=== PATIENT | female | born 1955 | race Caucasian/White ===

== ENCOUNTER → 2018-04-27 12:06 | Outpatient (CLI) | payer OTHER, MEDICAID, SELFPAY ==
--- NOTE | 2018-04-27 | DI.MRI.S_ITS ---
PROCEDURE: MR HEAD/BRAIN WO/W CON INDICATIONS: SPELL OF ALTERED CONSCIOUSNESS TECHNIQUE: Noncontrast axial T1 spin echo, axial T2 fast spin echo, sagittal and axial FLAIR, coronal T2 fast spin echo, axial gradient echo, axial diffusion and ADC through the brain. After the administration of contrast, axial and coronal 3D VIBE or T1 spin echo with fat saturation through the brain. COMPARISON: None. FINDINGS: Image quality: Excellent. CSF Spaces: Basal cisterns are patent. No extra-axial fluid collections. Ventricles are normal in size and shape. Brain: No midline shift. No intracranial bleeds or masses. No abnormal intracranial enhancement. The brainstem appears normal. Diffusion-weighted images demonstrate no acute ischemic insults. No chronic ischemic insults. Normal intravascular flow voids are present. Skull and face: Calvarial marrow is normal in signal. Orbits appear normal. Sinuses: Sinuses and mastoids appear clear. IMPRESSION: Mild mucosal thickening right maxillary sinus, normal appearing ventricles and subarachnoid spaces. No evidence of underlying prior hemorrhage or inflammation involving the brain parenchyma. Source of altered mental status is not found. Dictated by: Brent Ryder M.D. on 04/27/2018 at 12:33 Approved by: Brent Ryder M.D. on 04/27/2018 at 12:38
== END ==
PROVIDERS: PCP Nurse Practitioner Gerontology; Visit Provider Psychiatry & Neurology Neurology
DX: R40.4 Transient alteration of awareness (principal)
CPT/HCPCS: 70553; A9579

== ENCOUNTER 2021-07-08 14:06 | Emergency (ER) | payer OTHER, MEDICAID, SELFPAY ==
[2021-07-08] VITALS (9 sets, daily range): BP systolic 109–144; BP diastolic 63–74; PULSE 66–83; RESP 7–38; TEMP 36.9; O2SAT 94–99; BMI 24.8
--- NOTE | 2021-07-08 14:13 | DI.RAD.S_ITS ---
PROCEDURE: XR CHEST 1V INDICATIONS: chest pain TECHNIQUE: One view of the chest was acquired. COMPARISON: None. FINDINGS: Surgical changes and devices: None. Lungs and pleura: Minor atelectatic change at the left lung base. Lungs are otherwise clear. No pleural effusions or pneumothorax. Mediastinum: Mediastinal contours appear normal. Heart size is normal. Bones and chest wall: No suspicious bony lesions. Overlying soft tissues appear unremarkable. IMPRESSION: 1. No acute cardiopulmonary disease. Dictated by: Amie Zapien M.D. on 07/08/2021 at 15:12 Approved by: Amie Zapien M.D. on 07/08/2021 at 15:12
--- NOTE | 2021-07-08 14:53 | PC.NURSE ---
Patient reports head injury from fall 2 weeks ago with laceration to back of head, did not have immediate LOC but reports lethargy and inability to stay awake longer than 2 minutes. Did not seek care for fall. C/o flopping of the body, nausea, confusion, difficulty ambulating.
[2021-07-08 14:57] LABS: Add Manual Diff / Slide Review NO; Basophils Absolute Auto 0 /uL (0-100); Basophils Percent Auto 0.8 % (0-2); Eosinophils Absolute Auto 100 /uL (0-450); Eosinophils Percent Auto 2.2 % (2-4); Hematocrit 42.6 % (36-46); Hemoglobin 14.5 g/dL (12.0-16.0); Lymphocytes Absolute Auto 1600 /uL (1100-4500); Lymphocytes Percent Auto 30.8 % (25-40); Mean Corpuscular HGB Conc 33.9 % (30-36); Mean Corpuscular Hemoglobin 30.8 PG (26-34); Mean Corpuscular Volume 90.8 fL (80-100); Monocytes Absolute Auto 600 /uL (0-900); Monocytes Percent Auto 11.2 % (3-14); Neutrophils Absolute Auto 2900 /uL (1500-7000); Platelet Count 225 X10^3/uL (150-400); Red Blood Cell Count 4.69 X10^6/uL (4.0-5.2); White Blood Cell Count 5.3 X10^3/uL (4.5-11.0)
--- NOTE | 2021-07-08 14:59 | DI.CT.S_ITS ---
PROCEDURE: CT HEAD/BRAIN WO CON INDICATIONS: fall, hit head 2 weeks ago. TECHNIQUE: Noncontrast 4.5 mm thick angled axial sections acquired from the foramen magnum to the vertex, with coronal and sagittal reformats. For radiation dose reduction, the following was used: automated exposure control, adjustment of mA and/or kV according to patient size. COMPARISON: [facility], , STROKE PROTOCOL, 02/10/2014, 7:14. [facility], MR, MR HEAD/BRAIN WO/W CON, 04/27/2018, 11:03. FINDINGS: Image quality: Excellent. CSF spaces: Basal cisterns are patent. No extra-axial fluid collections. The ventricles are symmetric in size and shape. Brain: No intracranial bleeds or masses. There is cerebral volume loss for age, with resultant ventricular and sulcal prominence. There are periventricular and deep white matter chronic small vessel ischemic changes. There is intracranial internal carotid artery atherosclerosis. Skull and face: Calvarium and visualized facial bones appear intact, without suspicious lesions. Sinuses: Visualized sinuses and mastoids are clear. IMPRESSION: 1. No acute intracranial abnormalities. Dictated by: Pascual Oliveira M.D. on 07/08/2021 at 15:36 Approved by: Pascual Oliveira M.D. on 07/08/2021 at 16:56
[2021-07-08 15:08] LABS: Alanine Aminotransferase 25 IU/L (<35); Albumin 4.5 g/dL (3.5-5.0); Albumin Globulin Ratio 1.6 (1.0-2.8); Alkaline Phosphatase 88 U/L (38-126); Aspartate Aminotransferase 28 IU/L (14-36); BUN Creatinine Ratio 20.3 (6-22); Bilirubin Total 0.5 mg/dL (0.2-1.3); Blood Urea Nitrogen 13 mg/dL (7-17); Calcium 9.7 mg/dL (8.4-10.2); Carbon Dioxide 28 mmol/L (22-32); Chloride 100 mmol/L (98-107); Creatine Kinase 40 U/L (30-135); Estimated Glomerular Filt Rate > 60.0 mL/min (>60); Globulin 2.9 g/dL (1.7-4.1); Glucose 166 mg/dL (80-110); HEMOLYSIS < 15 (0-50); Lipase 156 U/L (23-300); Potassium 3.8 mmol/L (3.4-5.1); Sodium 138 mmol/L (137-145); Total Protein 7.4 g/dL (6.3-8.2)
[2021-07-08 15:19] LABS: Troponin I < 0.012 ng/mL (0.01-0.034)
--- NOTE | 2021-07-08 15:54 | ED_ITS ---
HPI - Fall General Chief Complaint: Dizziness Stated Complaint: Fell, vertigo, hit head,not focusing, nausea Time Seen by Provider: 07/08/21 14:59 Source: patient Mode of arrival: Family Vehicle Limitations: no limitations History of Present Illness HPI Narrative: This is a 65-year-old female who comes with complaint of chronic vertigo which caused her to fall about 2 weeks ago. Patient states she fell striking the back of her head. She states there was a laceration but she allowed it to heal at home. She states that she did not have a complete loss of consciousness but she was confused. She states she basically went to bed for the next 5 days to recover. Patient states she would get up for couple hours each day but has felt continuing sense of fatigue that is quite strong since the episode, she has occasionally felt dizzy on top of her typical vertigo symptoms which are chronic in nature. She has had headaches which she describes as different at than her typical migraines. They sort of change location. She has had trouble focusing, she has had trouble or she just feels unwell when she tries to engage or have conversations or read or watch TV. She has had some nausea particularly with these types of activities but no vomiting. She actually finds food is helpful. She denies any syncope. No chest pain or shortness of breath. No numbness, tingling or weakness. Patient states she has had issues with vertigo typically is a seasonal issue and this is chronic and does not seem to be worsening. She does note that she has had a history of ?spells? that never had a formal diagnosis she saw a neurologist who told her it was all in her head. She states she saw 1 of our general surgeons who she showed diagnosis out of a book and they told her that seemed corrected she was treated with steroids but she does not know what the diagnosis was and can not describe it. She has had multiple MRIs in the past. She does have a primary care she follows with. She had history of breast cancer in 2013 she had lumpectomy and radiation but no chemotherapy. She has had bilateral oophorectomy for ?spots on her ovaries? and cholecystectomy. She uses a hormonal patch, migraine medications and CBD gummies every couple weeks which help with her spells. She gets nausea with codeine. No tobacco, alcohol or illicit other than CBD. 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 She does have a primary care that she follows with. Related Data Previous Rx's Medication Instructions Recorded hydromorphone 2 mg tablet 2 mg PO Q4HP PRN #20 tab 09/16/16 (Dilaudid) ondansetron 4 mg disintegrating 4 mg SUBLINGUAL Q4HP PRN #15 odt 09/16/16 tablet (Zofran ODT) oxycodone-acetaminophen 5 mg-325 1 - 2 tab PO Q6HP PRN #20 tab 09/20/16 mg tablet (Percocet) Allergies Allergy/AdvReac Type Severity Reaction Status Date / Time No Known Drug Allergies Allergy Verified 07/08/21 14:22 Review of Systems Review of Systems ROS Unobtainable: All systems reviewed & are unremarkable except as noted in HPI and below Patient History Social History Smoking Status: Never smoker Smoking Status: Never smoker alcohol intake frequency: holidays/special occasions only Substance Use Type: does not use Exam Narrative Exam Narrative: GEN: well nourished, well appearing female, alert and oriented x 3, patient appears to be in mild distress. HEENT: Atraumatic, pupils are equal round reactive to light, extraocular movements are intact, nares are clear, TMs are clear with no fluid, there is no conjunctival pallor. Throat is clear without any exudates, erythema, tonsillar enlargement or uvular deviation, no facial droop. HEART: Regular rate and rhythm without murmur, clicks, rubs. Pulses are equal in upper and lower extremities LUNGS:Lungs clear to auscultation, no wheezes, rales, crackles, chest moves symmetrically ABD:bowel sounds normal, soft, non-tender, no guarding, rebound, rigidity, no masses noted, no hepatosplenomegaly :No CVA tenderness MSCL: Non-tender, no muscle atrophy, muscles strength 5/5 upper and lower extremities, full range of motion NEURO:CN 2-12 intact, sensation normal, reflexes 2/4 upper and lower extremities. finger nose finger test normal, heel gallegos test normal, no dysarthria or aphasia. SKIN: No rash, erythema or other skin changes. Initial Vital Signs Initial Vital Signs: Vital Signs Temperature 98.5 F 10/28/21 14:15 Pulse Rate 78 07/08/21 14:15 Respiratory Rate 19 07/08/21 14:15 Blood Pressure 139/71 07/08/21 14:15 Pulse Oximetry 99 07/08/21 14:15 Course Orders Ordered: ED Orders 07/08/21 14:13 XR chest 1V Stat EKG-12 Lead Stat 07/08/21 14:47 Complete Blood Count AUTO DIFF Stat Comprehensive Metabolic Panel Stat Lipase Stat Troponin & CK Cardiac Panel Stat 07/08/21 14:59 CT head/brain wo con Stat 07/08/21 16:55 Urine Microscopic Stat Vital Signs Vital signs: Vital Signs - 8 hr 07/08/21 14:15 07/08/21 14:43 07/08/21 14:44 Temperature 98.5 F Pulse Rate 78 83 81 Respiratory Rate 19 17 16 Blood Pressure 139/71 134/72 Pulse Oximetry 99 99 98 07/08/21 15:00 07/08/21 15:01 07/08/21 15:30 Temperature Pulse Rate 69 67 70 Respiratory Rate 33 H 28 H 7 L Blood Pressure 122/72 114/63 Pulse Oximetry 96 96 95 07/08/21 16:00 07/08/21 16:30 07/08/21 17:00 Temperature Pulse Rate 67 66 72 Respiratory Rate 38 H 23 24 Blood Pressure 109/66 140/74 144/66 H Pulse Oximetry 94 96 97 MDM - Fall Lab Data Result diagrams: 07/08/21 14:47 07/08/21 14:47 Labs: Lab Results 07/08/21 07/08/21 07/08/21 Range/Units 14:47 14:47 16:55 WBC 5.3 (4.5-11.0) X10^3/uL RBC 4.69 (4.0-5.2) X10^6/uL Hgb 14.5 (12.0-16.0) g/dL Hct 42.6 (36-46) % MCV 90.8 (80-100) fL MCH 30.8 (26-34) PG MCHC 33.9 (30-36) % RDW 13.0 (11.6-14.8) % Plt Count 225 (150-400) X10^3/uL Neut % (Auto) 55.0 (50-75) % Lymph % (Auto) 30.8 (25-40) % [place] % (Auto) 11.2 (3-14) % Eos % (Auto) 2.2 (2-4) % Baso % (Auto) 0.8 (0-2) % Neut # (Auto) 2900 (8098-7952) /uL Lymph # (Auto) 1600 (3062-5334) /uL [place] # (Auto) 600 (0-900) /uL Eos # (Auto) 100 (0-450) /uL Baso # (Auto) 0 (0-100) /uL Sodium 138 (137-145) mmol/L Potassium 3.8 (3.4-5.1) mmol/L Chloride 100 (98-107) mmol/L Carbon Dioxide 28 (22-32) mmol/L BUN 13 (7-17) mg/dL Creatinine 0.64 (0.52-1.04) mg/dL Estimated GFR > 60.0 (>60) mL/min BUN/Creatinine Ratio 20.3 (6-22) Glucose 166 H (80-110) mg/dL Calcium 9.7 (8.4-10.2) mg/dL Total Bilirubin 0.5 (0.2-1.3) mg/dL AST 28 (14-36) IU/L ALT 25 (<35) IU/L Alkaline Phosphatase 88 (38-126) U/L Total Creatine Kinase 40 (30-135) U/L CK-MB (CK-2) TNP CK-MB (CK-2) Rel Index TNP Troponin I < 0.012 (0.01-0.034) ng/mL Total Protein 7.4 (6.3-8.2) g/dL Albumin 4.5 (3.5-5.0) g/dL Globulin 2.9 (1.7-4.1) g/dL Albumin/Globulin Ratio 1.6 (1.0-2.8) Lipase 156 (23-300) U/L Urine RBC 0-1/hpf (0-5/HPF) Urine WBC None seen (0-5/HPF) Ur Squamous Epith Cells 5-10 /hpf H (0-5/HPF) Urine Bacteria Moderate (10-30) H (None) Ur Culture Indicated? Cult not indicated Urine Dip Bedside Urine Glucose Negative Bedside Urine Bilirubin - Negative Bedside Urine Ketone +/- 5 Urine Specific [place] 1.025 Bedside Urine Occult Blood +/- Bedside Urine pH 6.0 Bedside Urine Protein - Negative Bedside Urine Urobilinogen - Negative Bedside Urine Nitrite - Negative Bedside Urine Leukocytes - Negative Esterase Imaging Data CT scan - head: Radiologist's Impression: Yoselyn Benito 65 F [address] [id number] Scan ReportSigned Patient: Yoselyn Benito JMR#: [id number]: 1955cct:[id number]/Sex: 65 / FDate of Service: 07/08/21Loc: EDAccession Number: [id number] Procedure: CT head/brain wo con Ordering Provider: Vania Almaguer D.O. PROCEDURE: CT HEAD/BRAIN WO CON INDICATIONS: fall, hit head 2 weeks ago. TECHNIQUE: Noncontrast 4.5 mm thick angled axial sections acquired from the foramen magnum to the vertex, with coronal and sagittal reformats. For radiation dose reduction, the following was used: automated exposure control, adjustment of mA and/or kV according to patient size. COMPARISON: [facility], , STROKE PROTOCOL, 02/10/2014, 7:14. [facility], MR HEAD/BRAIN WO/W CON, 04/27/2018, 11:03. FINDINGS: Image quality: Excellent. CSF spaces: Basal cisterns are patent. No extra-axial fluid collections. The ventricles are symmetric in size and shape. Brain: No intracranial bleeds or masses. There is cerebral volume loss for age, with resultant ventricular and sulcal prominence. There are periventricular and deep white matter chronic small vessel ischemic changes. There is intracranial internal carotid artery atherosclerosis. Skull and face: Calvarium and visualized facial bones appear intact, without suspicious lesions. Sinuses: Visualized sinuses and mastoids are clear. IMPRESSION: 1. No acute intracranial abnormalities. Dictated by: Pascual Oliveira M.D. on 07/08/2021 at 15:36 Approved by: Pascual Oliveira M.D. on 07/08/2021 at 16:56 Chest x-ray: Radiologist's Impression: [address] [id number] ReportSigned Patient: Yoselyn Benito [facility]#: [id number]: 8Acct:[id number]/Sex: 65 / FDate of Service: 07/08/21Loc: EDAccession Number: [id number] Procedure: XR chest 1V Ordering Provider: Vania Almaguer D.O. PROCEDURE: XR CHEST 1V INDICATIONS: chest pain TECHNIQUE: One view of the chest was acquired. COMPARISON: None. FINDINGS: Surgical changes and devices: None. Lungs and pleura: Minor atelectatic change at the left lung base. Lungs are o therwise clear. No pleural effusions or pneumothorax. Mediastinum: Mediastinal contours appear normal. Heart size is normal. Bones and chest wall: No suspicious bony lesions. Overlying soft tissues appear unremarkable. IMPRESSION: 1. No acute cardiopulmonary disease. Dictated by: Amie Zapien M.D. on 07/08/2021 at 15:12 Approved by: Amie Zapien M.D. on 07/08/2021 at 15:12 ECG Data Attestation: I personally reviewed and interpreted this ECG as follows: Prior ECG tracings: available for review Interpretation: Sinus rhythm premature atrial complexes. Nonspecific T-wave. Rate of 79 OR 150 QRS is 78 QTC 451. No acute ST changes appreciated. MDM Narrative Medical decision making narrative: 65-year-old female who has had chronic vertigo which caused her to fall about 2 weeks ago she states she hit her head she has described headaches, feeling confused and symptoms seem very consistent with concussion. She and I discussed at length her symptoms recent and new she has seen neurology in the past but that was almost a decade ago. Her vertigo has never been fully worked up and I recommended that this might be helpful to her. We discussed following with her primary care we even discussed neuropsychiatric testing for concussion which she seems reluctant to pursue but we discussed if she has persistent symptoms that are not improving she should at least to follow up and go ahead and call and set up an appointment so she can be seen in the next week. Return precautions discussed she defers any medications for symptoms. Discharge Plan Departure Patient Disposition: Home Clinical Impression: Concussion Instructions: DI for Concussion Activity Restrictions/Additional Instructions: Follow-up with your physician for recheck. Your symptoms today seem very consistent with a concussion from your fall and hitting your head. I would recommend following with ENT if you have persistent and recurrent vertigo type symptoms. Referral is included below. Please return for severe headaches, vision changes, new numbness, tingling or weakness, persistent vomiting, passing out, new vision changes, or other new or concerning symptoms Prescriptions: No Action hydromorphone [Dilaudid] 2 MG tablet 2 mg PO Q4HP PRNQty: 20 RF: 0 ondansetron [Zofran ODT] 4 MG tablet,disintegrating 4 mg Sublingual Q4HP PRNQty: 15 RF: 0 oxycodone-acetaminophen [Percocet] 5 MG/325 MG tablet 1 - 2 tab PO Q6HP PRNQty: 20 RF: 0 Referrals: Salvatore Jung MD [Physician] - Kimmie Livingston ARNP [Primary Care Provider] -
[2021-07-08 17:33] LABS: Bacteria Urine Moderate (10-30); Culture Indicated Urine Cult Not Indicated; RBC Urine 0-1/HPF (0-5/HPF); Squamous Epithelial Cell Urine 5-10 /HPF (0-5/HPF); WBC Urine None Seen (0-5/HPF)
== END 2021-07-08 17:10 | disposition home or self-care (01) ==
PROVIDERS: Emergency Provider Emergency Medicine; PCP Nurse Practitioner Gerontology
DX: S06.0X9A Concussion with loss of consciousness of unspecified duration, initial encounter (principal); R41.0 Disorientation, unspecified; R07.9 Chest pain, unspecified; W18.00XD Striking against unspecified object with subsequent fall, subsequent encounter
CPT/HCPCS: 36415; 70450; 71045; 80053; 81003; 81015; 82550; 83690; 84484; 85025; 93005; 99284

== ENCOUNTER 2024-07-25 11:10 | Emergency (ER) | payer OTHER, SELFPAY ==
--- NOTE | 2024-07-25 11:12 | DI.RAD.S_ITS ---
PROCEDURE: XR KNEE RT 3V INDICATIONS: Generalized pain TECHNIQUE: 3 views of the knee were acquired. COMPARISON: None. FINDINGS: Bones: No fractures or dislocations. No suspicious bony lesions. Tricompartmental osteoarthritis. Soft tissues: No joint effusion. No suspicious soft tissue calcifications. IMPRESSION: No acute bony abnormality or significant effusion. Dictated by: Cherelle Gómez MD, PhD on 07/25/2024 at 12:13 Approved by: Cherelle Gómez MD, PhD on 07/25/2024 at 12:13
[2024-07-25 11:28] VITALS: BP 116/71; PULSE 64; RESP 12; TEMP 36.4; O2SAT 93; BMI 26.6
--- NOTE | 2024-07-25 11:30 | ED_ITS ---
HPI - Extremity Injury (Lower) <Chika Hernandez PA-C - Last Filed: 07/25/24 13:21> General Chief Complaint: Extremity Injury, Lower Stated Complaint: Right Knee Pain Time Seen by Provider: 07/25/24 11:29 History of Present Illness HPI Narrative: Ms. Benito is a pleasant 68-year-old female with a past medical history of anxiety and depression who presents to the emergency department for right knee pain via EMS from home in [place] x2 weeks. Patient reports about 2 weeks ago she was stretching her right leg in an abnormal way during sex when she accidentally twisted the knee causing pain. Reports that the pain got worse about 6 days ago so she went to [facility] Emergency room and had x-rays which were negative. The patient was not satisfied with her care. She has been using an [id number] knee brace and occasionally takes Tylenol for pain but reports that today the pain was severe which prompted her to call EMS. She denies any new injuries to the knee today or any falls at any point. States that she is currently caring for her 91-year-old mother who recently had a stroke which is very taxing on her and is exacerbating her knee pain. Knee pain is worsened by ambulation and bending. Nothing alleviates the pain. She received 75 mcg of fentanyl and 4 mg of Zofran via EMS and now feels slightly nauseated but the pain is improved. She denies neck pain, back pain, hip pain, foot pain. No swelling, bruising, lacerations. Both EMS and her , emily, contribute to the history. Related Data Previous Rx's Medication Instructions Recorded hydromorphone 2 mg tablet 2 mg PO Q4HP PRN #20 tabs 09/16/16 (Dilaudid) ondansetron 4 mg disintegrating 4 mg sublingual Q4HP PRN ##15 09/16/16 tablet (Zofran ODT) oxycodone-acetaminophen 5 mg-325 1 - 2 tab PO Q6HP PRN #20 tabs 09/20/16 mg tablet (Percocet) Allergies Allergy/AdvReac Type Severity Reaction Status Date / Time No Known Drug Allergies Allergy Verified 07/08/21 14:22 Review of Systems <Chika Hernandez PA-C - Last Filed: 07/25/24 13:21> Review of Systems ROS Unobtainable: All systems reviewed & are unremarkable except as noted in HPI and below Patient History <Chika Hernandez PA-C - Last Filed: 07/25/24 13:21> Social History Smoking Status: Never smoker Smoking Status: Never smoker alcohol intake frequency: holidays/special occasions only Substance Use Type: does not use Exam <Chika Hernandez PA-C - Last Filed: 07/25/24 13:21> Narrative Exam Narrative: GENERAL: 68 year old patient appears stated age. Well-developed patient, in no acute distress. HEAD: Atraumatic. Normocephalic. EYES: PERRL. Extraocular motions intact. No scleral icterus. No injection or drainage. ENT: Nose without bleeding, purulent drainage. Airway patent. NECK: Trachea midline. Cervical ROM intact. CARDIOVASCULAR: Regular rate and rhythm. RESPIRATORY: ?Nonlabored respirations. ?Speaking in clear, full sentences. ?Clear to auscultation. Breath sounds equal bilaterally. No wheezes, rales, or rhonchi. ? EXTREMITIES: right knee: No reproducible joint laxity on Phill's test. Pain is exacerbated with extension of the knee and with palpation of the medial joint line. No obvious deformities of the knee. No lower extremity swelling or discoloration. Brisk distal capillary refill. BACK: Nontender without deformity or crepitance. No flank tenderness. NEURO: AOx3. ?Clear speech. ?Moves all 4 extremities appropriately except for R knee 2/2 pain. SKIN: No rash or erythema of visible areas Initial Vital Signs Initial Vital Signs: Vital Signs Temperature 97.6 F 07/25/24 11:28 Pulse Rate 64 07/25/24 11:28 Respiratory Rate 12 07/25/24 11:28 Blood Pressure 116/71 07/25/24 11:28 Pulse Oximetry 93 07/25/24 11:28 Oxygen Delivery Method Room Air 07/25/24 11:28 <Andrea Flannery DO - Last Filed: 07/25/24 13:28> Initial Vital Signs Initial Vital Signs: Vital Signs Temperature 97.6 F 07/25/24 11:28 Pulse Rate 64 07/25/24 11:28 Respiratory Rate 12 07/25/24 11:28 Blood Pressure 116/71 07/25/24 11:28 Pulse Oximetry 93 07/25/24 11:28 Oxygen Delivery Method Room Air 07/25/24 11:28 Course <Chika Hernandez PA-C - Last Filed: 07/25/24 13:21> Orders Ordered: ED Orders 07/25/24 11:12 XR knee RT 3V Stat Vital Signs Vital signs: Vital Signs - 8 hr 07/25/24 11:28 Temperature 97.6 F Pulse Rate 64 Respiratory Rate 12 Blood Pressure 116/71 Pulse Oximetry 93 Oxygen Delivery Method Room Air <Andrea Flannery DO - Last Filed: 07/25/24 13:28> Orders Ordered: ED Orders 07/25/24 11:12 XR knee RT 3V Stat Vital Signs Vital signs: Vital Signs - 8 hr 07/25/24 11:28 Temperature 97.6 F Pulse Rate 64 Respiratory Rate 12 Blood Pressure 116/71 Pulse Oximetry 93 Oxygen Delivery Method Room Air MDM - Extremity Injury (Lower) <Chika Hernandez PA-C - Last Filed: 07/25/24 13:21> Imaging Data Right Knee Xray: My Impression: On my independent interpretation of right knee x-ray, no obvious fracture of the proximal tibia or fibula. Radiologist's Impression: PROCEDURE: XR KNEE RT 3V INDICATIONS: Generalized pain TECHNIQUE: 3 views of the knee were acquired. COMPARISON: None. FINDINGS: Bones: No fractures or dislocations. No suspicious bony lesions. Tricompartmental osteoarthritis. Soft tissues: No joint effusion. No suspicious soft tissue calcifications. IMPRESSION: No acute bony abnormality or significant effusion. [facility] Narrative Medical decision making narrative: 68-year-old female presents to the emergency room for right knee pain. Differential diagnosis includes but is not limited to knee dislocation, patellar fracture, tibial plateau fracture, meniscus and ligament injury, patellar dislocation, patellar tendinitis, patellar tendon rupture, quadriceps tendon rupture, arthritis, etc.. On exam patient is in no acute distress, nontoxic appearing, no reproducible joint laxity. She does have tenderness in the medial joint line. Patient reports during my exam I ?popped? her knee back into place resolving her pain. We will obtain repeat x-ray of the right knee as unable to get would be health records at this time. She already received Zofran and fentanyl from EMS she does not need additional pain medication. Knee x-ray reveals no acute bony abnormality or significant effusion. She does have tricompartmental osteoarthritis. Patient was placed into a knee immobilizer for support/for any possible ligament injury such as MCL. I nicke nsively discussed with patient the importance of following up with Orthopedics for repeat evaluation and further management. Recommended Voltaren cream, Tylenol and ibuprofen for pain. Patient's pain is improved, her right lower leg is neurovascularly intact, and her is here to drive her home. Advised follow up with PCP and Orthopedics. Patient is agreeable to plan and stable for discharge. Discharge Plan Departure Patient Disposition: Home Clinical Impression: Arthritis of knee Knee pain, right Qualifiers: Chronicity: acute Qualified Code(s): M25.561 - Pain in right knee Instructions: DI for Knee Pain Activity Restrictions/Additional Instructions: Please call to schedule an appointment with [facility], Dr. Justice, for further evaluation of your knee pain and arthritis. Call . You may need a formal referral from your primary care doctor for orthopedic evaluation. Please rest, ice the knee, elevate the leg to reduce swelling, and where the supplied knee brace. You may alternate 1000 mg of Tylenol and 400 mg of ibuprofen every 6 hours for pain. You may also use [id number] topical arthritis creams such as Voltaren. Please follow up with your primary care doctor within the next 2-3 days. Return to the emergency department for any new or worsening symptoms, or any other concerns. Thank you for letting me participate in your care, Chika Hernandez PA-C Prescriptions: No Action hydromorphone [Dilaudid] 2 MG tablet 2 mg PO Q4HP PRNQty: 20 0RF ondansetron [Zofran ODT] 4 MG tablet,disintegrating 4 mg Sublingual Q4HP PRNQty: 15 0RF oxycodone-acetaminophen [Percocet] 5 MG/325 MG tablet 1 - 2 tab PO Q6HP PRNQty: 20 0RF Referrals: Kimmie Livingston ARNP [Primary Care Provider] - Stand Alone Forms: Patient Portal/API/Survey ED Sign-out <Andrea Flannery DO - Last Filed: 07/25/24 13:28> Cosign ED Attending Cosignature Attestation: Dr Flannery Co-Sign Statement: I was available for consultation during this patient's emergency department visit. This chart is signed by myself for administrative purposes only. I did not have direct contact with this patient during this visit. They were seen independently by the APC.
[2024-07-25 13:31] VITALS: BP 111/63; PULSE 69; RESP 14; O2SAT 95
== END 2024-07-25 13:33 | disposition home or self-care (01) ==
PROVIDERS: Emergency Provider Physician Assistant; PCP Nurse Practitioner Gerontology
DX: M25.561 Pain in right knee (principal); M17.11 Unilateral primary osteoarthritis, right knee; X50.1XXA Overexertion from prolonged static or awkward postures, initial encounter
CPT/HCPCS: 73562; 99283

== ENCOUNTER → 2024-08-22 16:27 | Outpatient (CLI) | payer OTHER, SELFPAY ==
--- NOTE | 2024-08-22 16:29 | DI.MRI.S_ITS ---
PROCEDURE: MR KNEE RT WO CON INDICATIONS: TEAR OF MEDIAL MENISCUS RT KNEE TECHNIQUE: Noncontrast sagittal PD fast spin echo and T2 fast spin echo with fat saturation, sagittal 3-D FLASH with fat saturation; coronal T1 spin echo and PD fast spin echo with fat saturation, and axial PD fast spin echo with fat saturation through the knee. COMPARISON: None. FINDINGS: Image quality: Excellent. Menisci: In the medial meniscus, there is a mildly complex tear with an oblique and a undersurface flap component, extending to the posterior root. There is marked extrusion of the medial meniscus body, with a large flap extending into the inferior gutter. In the lateral meniscus, there is a complex tear of the posterior horn, with undersurface and oblique component. There is additional oblique tear of the lateral meniscus body. No extrusion of the lateral meniscus body. Cruciate ligaments: The anterior and posterior cruciate ligaments appear intact. Medial structures: The medial collateral ligament appears intact. The posterior oblique ligament, semimembranosus tendon insertions, oblique popliteal ligament, and meniscocapsular junction appear intact. Visualized portions of the pes anserinus tendons appear normal. No abnormal bursal fluid. Lateral structures: Low-grade interstitial tear of the distal biceps femoris tendon. Mild sprain of the proximal fibular collateral ligament. The popliteal tendon muscle is unremarkable. The iliotibial band is intact. Anterior structures: The quadriceps and patellar tendons appear intact. Patellar alignment is normal. No femoral trochlear dysplasia or ventral trochlear prominence. No edema in the infrapatellar fat pad. Bones and cartilage: In the patellofemoral compartment, there is multifocal mild chondral irregularity of the patella. There is focal full-thickness chondral loss in the central trochlea. In the medial compartment, there is mild chondral irregularity of the weight-bearing portion of the medial femoral condyle. In the lateral compartment, there is mild chondral irregularity in the weight-bearing portion of the lateral femoral condyle and the lateral tibial plateau. Mild subchondral marrow edema at the tibial eminence, reactive. No acute fracture. Joint space: Small knee effusion. 6 mm loose body in the medial aspect of the suprapatellar recess. Small popliteal cyst. Popliteal vasculature is unremarkable. IMPRESSION: 1. Tear of medial meniscus with meniscus flap. 2. Tear of the lateral meniscus. 3. Low-grade tear of the distal biceps femoris tendon. Mild sprain of the proximal fibular collateral ligament. 4. Mild tricompartmental chondrosis. 5. Small knee effusion. 6 mm loose body in the suprapatellar recess. Dictated by: Ana Sousa M.D. on 08/23/2024 at 9:53 Approved by: Ana Sousa M.D. on 08/23/2024 at 10:04
== END ==
PROVIDERS: PCP Nurse Practitioner Gerontology; Referring Provider Orthopaedic Surgery; Visit Provider Orthopaedic Surgery
DX: S83.231A Complex tear of medial meniscus, current injury, right knee, initial encounter (principal); S83.271A Complex tear of lateral meniscus, current injury, right knee, initial encounter; S76.811A Strain of other specified muscles, fascia and tendons at thigh level, right thigh, initial encounter; M94.261 Chondromalacia, right knee; M25.461 Effusion, right knee; X58.XXXA Exposure to other specified factors, initial encounter
CPT/HCPCS: 73721

== ENCOUNTER 2024-09-26 12:01 | Day surgery (SDC) | payer OTHER, SELFPAY ==
[2024-09-19 12:10] VITALS: BMI 26.6
[2024-09-26] VITALS (8 sets, daily range): BP systolic 85–138; BP diastolic 55–87; PULSE 76–95; RESP 10–19; TEMP 36.2–36.6; O2SAT 94–97; BMI 27.4
[2024-09-26] MEDS: ACETAMINOPHEN 325 MG TABLET 975 MG PO (13:05)
[2024-09-26] MEDS: BUPIVACAINE 0.5% W/ EPI (PF) 30 ML VIAL INJ (14:33)
[2024-09-26] MEDS: CEFAZOLIN 2 GM/100 ML PREMIX 100 ML IV (14:42)
[2024-09-26] MEDS: SODIUM CHLORIDE 0.9% 1,000 ML 84 ML IV (15:24)
--- NOTE | 2024-10-01 08:04 | P.OP_ITS ---
Operative Date/Time/Diagnoses Date of procedure: 09/26/24 Time of procedure: 15:00 Pre-op diagnosis: Right knee medial and lateral meniscus tear Post-op diagnosis: same Procedure & Clinicians Procedure: Right knee arthroscopy with partial medial and partial lateral meniscectomy Same procedure as scheduled: Yes Indications: This is a 69-year-old female with a history of severe right knee pain with intermittent locking. She failed conservative treatment and had workup including an MRI scan which showed evidence of a medial and lateral meniscal tear. It also suggested a probable loose body in the suprapatellar pouch. She was brought to the operating room for right knee arthroscopy with repair as indicated. The limits of the procedure, options risks benefits and complications were discussed in detail. Surgeon: Kendra Aj Click Yes if Unassisted: Yes Anesthesia Type: General Operative Notes Findings: One examination under anesthesia stable 2. Suprapatellar pouch, synovitis but n o focal large loose body 3. Patellofemoral joint grade 2 and areas of grade 3 chondromalacia in the patellofemoral joint especially in the trochlear groove 4. Medial compartment complex tear in the posterior horn of the medial meniscus which extended from the middle 3rd of the medial meniscus into the posterior horn with a free flap, grade 2 chondromalacia along the medial femoral condyle and tibial plateau 5. Notch normal ACL 6. Lateral compartment complex tear in the lateral meniscus in the posterior horn was moderate articular cartilage loss in the anterolateral aspect of the tibia up to grade 4 Closure Type: primary Specimen(s): none sent Estimated Blood Loss (mL): 10 Blood products transfused: none Procedure in detail: Patient was brought to the operating room. She underwent induction of general anesthesia. The right lower extremity was prepped and draped standard sterile fashion. She was given IV antibiotics. Her examination under anesthesia was stable. A 3 portal arthroscopy was performed with a superolateral portal and me dial and lateral inferior parapatellar portals. Combination of a mechanical shaver and small baskets were used to perform a partial medial meniscectomy. The intraoperative findings were as noted above for the diagnostic portion of the scope. The knee was meticulously insufflated and the scope was used examined throughout the knee. There was tearing in both the medial and lateral meniscus. In the medial compartment there was a complex tear of the medial meniscus with an unstable flap. It was meticulously resected back to stable meniscal rim. Attention was then directed to the lateral compartment. A mechanical shaver was used to perform a partial lateral meniscectomy. He she did have a fairly complex tear in the lateral meniscus with significant tearing on the anterior horn of the lateral meniscus and significant articular cartilage loss. The knee was meticulously irrigated with normal saline. We checked throughout the knee to make sure that the loose body had not migrated. The knee was meticulously irrigated and the portals were closed with interrupted nylon. The wound was dressed sterilely. Patient tolerated the procedure well. She was transferred to recovery room in satisfactory condition. Complications none. Complications: none Post-operative Condition: stable Disposition: same day surgery Plan for aftercare: Patient can be weightbear as tolerated on the right lower extremity. She will be discharged to home she immediate range of motion and progressive strengthening exercises. Suture removal at about 10 days postoperatively.
== END 2024-09-26 16:04 | disposition home or self-care (01) ==
PROVIDERS: PCP Nurse Practitioner; Referring Provider Orthopaedic Surgery; Visit Provider Orthopaedic Surgery
PROC: (CPT 29870; principal; 2024-09-26 15:15)
DX: S83.231A Complex tear of medial meniscus, current injury, right knee, initial encounter (principal); S83.271A Complex tear of lateral meniscus, current injury, right knee, initial encounter; M22.41 Chondromalacia patellae, right knee; M65.98 Unspecified synovitis and tenosynovitis, other site; M23.91 Unspecified internal derangement of right knee; F32.A Depression, unspecified; X58.XXXA Exposure to other specified factors, initial encounter
CPT/HCPCS: 29880; J0690; J1100; J1885; J2405; J2704; J3010